=== PATIENT | female | born 1975 | race Native Hawaiian/Other Pacific Islander ===

== ENCOUNTER 2016-10-15 11:23 | Emergency (ER) | payer OTHER ==
--- NOTE | 2016-10-15 13:31 | ED CLINICAL REPORT ---
Clinical Report - Physicians/Mid Levels [facility] [address] [place] [address] 10/15/2016 11:28 Patient: AMANDA DANIEL Arrived- By private vehicle. Historian- patient. HISTORY OF PRESENT ILLNESS Chief Complaint: EARACHE. This started 3 days ago and is still present. Modifying factors- worsened by swallowing. Not relieved by anything. Location- right ear and left ear. The pain is described as moderate. The patient has had ear pain. No ear drainage, hearing loss, nasal discharge or congestion or sinus pressure. No ear trauma, jaw pain or facial pain. She has had a sore throat. Similar symptoms previously: None. Recent medical care: Not recently seen/assessed. PAST HISTORY See nurses notes. SOCIAL HISTORY Never smoker. No alcohol use or drug use. ADDITIONAL NOTES The nursing notes have been reviewed. PHYSICAL EXAM Vital Signs: 10/15/2016 13:34 BP: 132/76. HR: 87. RR: 14. O2 saturation: 99%. Temp: 98.1 F. Have been reviewed and appear to be correct. Appearance: Alert. No acute distress. Eyes: Eyes normal inspection. Throat: Mild generalized pharyngeal erythema. No right tonsillar exudate, right tonsillar swelling, left tonsillar exudate or left tonsillar swelling. Nose: Nose normal. Ear (right): There is erythema and bulging of the tympanic membrane and fluid behind the tympanic membrane. Right ear normal. Ear (left): There is erythema and bulging of the tympanic membrane and fluid behind the tympanic membrane. Left ear normal. Neck: Normal inspection. Mild right anterior neck and mild left anterior neck lymphadenopathy present. Neck supple. CVS: Normal heart rate and rhythm. Heart sounds normal. Respiratory: No respiratory distress. Breath sounds normal. Skin: Skin warm and dry. Normal skin color. No rash. Normal skin turgor. Neuro: Oriented X 3. PROGRESS AND PROCEDURES Course of Care: No evidence of sepsis or serious infection. Patient is stable. Patient/family counseled in person regarding the patient's condition and need for follow-up. Disposition: Discharged. Condition: stable. CLINICAL IMPRESSION Acute suppurative right otitis media; acute suppurative left otitis media. No perforation of right tympanic membrane. No perforation of left tympanic membrane. Acute viral pharyngitis INSTRUCTIONS Rest. Drink plenty of fluids. Warnings: GENERAL WARNINGS: Return or contact your physician immediately if your condition worsens or changes unexpectedly, if not improving as expected, or if other problems arise. Your Current Medications: CONTINUE TAKING THE FOLLOWING MEDICATIONS: Vitamin D Oral. Vitamins/Minerals Oral. Prescription Medications: Amoxicillin 500 mg tablets: take 1 orally every 8 hours for 10 days. No refills. Follow-up: Follow up with your doctor in about two days if not better. Understanding of the discharge instructions verbalized by patient. (Electronically signed by Jonna Mora A.R.N.P. 10/15/2016 14:45)
--- NOTE | 2016-10-15 13:31 | ED CLINICAL REPORT ---
Clinical Report - Physicians/Mid Levels [facility] [address] [place] [address] 10/15/2016 11:28 Patient: AMANDA DANIEL Arrived- By private vehicle. Historian- patient. HISTORY OF PRESENT ILLNESS Chief Complaint: EARACHE. This started 3 days ago and is still present. Modifying factors- worsened by swallowing. Not relieved by anything. Location- right ear and left ear. The pain is described as moderate. The patient has had ear pain. No ear drainage, hearing loss, nasal discharge or congestion or sinus pressure. No ear trauma, jaw pain or facial pain. She has had a sore throat. Similar symptoms previously: None. Recent medical care: Not recently seen/assessed. PAST HISTORY See nurses notes. SOCIAL HISTORY Never smoker. No alcohol use or drug use. ADDITIONAL NOTES The nursing notes have been reviewed. PHYSICAL EXAM Vital Signs: 10/15/2016 13:34 BP: 132/76. HR: 87. RR: 14. O2 saturation: 99%. Temp: 98.1 F. Have been reviewed and appear to be correct. Appearance: Alert. No acute distress. Eyes: Eyes normal inspection. Throat: Mild generalized pharyngeal erythema. No right tonsillar exudate, right tonsillar swelling, left tonsillar exudate or left tonsillar swelling. Nose: Nose normal. Ear (right): There is erythema and bulging of the tympanic membrane and fluid behind the tympanic membrane. Right ear normal. Ear (left): There is erythema and bulging of the tympanic membrane and fluid behind the tympanic membrane. Left ear normal. Neck: Normal inspection. Mild right anterior neck and mild left anterior neck lymphadenopathy present. Neck supple. CVS: Normal heart rate and rhythm. Heart sounds normal. Respiratory: No respiratory distress. Breath sounds normal. Skin: Skin warm and dry. Normal skin color. No rash. Normal skin turgor. Neuro: Oriented X 3. PROGRESS AND PROCEDURES Course of Care: No evidence of sepsis or serious infection. Patient is stable. Patient/family counseled in person regarding the patient's condition and need for follow-up. Disposition: Discharged. Condition: stable. CLINICAL IMPRESSION Acute suppurative right otitis media; acute suppurative left otitis media. No perforation of right tympanic membrane. No perforation of left tympanic membrane. Acute viral pharyngitis INSTRUCTIONS Rest. Drink plenty of fluids. Warnings: GENERAL WARNINGS: Return or contact your physician immediately if your condition worsens or changes unexpectedly, if not improving as expected, or if other problems arise. Your Current Medications: CONTINUE TAKING THE FOLLOWING MEDICATIONS: Vitamin D Oral. Vitamins/Minerals Oral. Prescription Medications: Amoxicillin 500 mg tablets: take 1 orally every 8 hours for 10 days. No refills. Follow-up: Follow up with your doctor in about two days if not better. Understanding of the discharge instructions verbalized by patient. (Electronically signed by Jonna Mora A.R.N.P. 10/15/2016 14:45)
--- NOTE | 2016-10-15 13:31 | ED NURSING NOTES ---
Clinical Report - Nurses [facility] [address] [place] [address] 10/15/2016 11:28 Patient: AMANDA DANIEL TRIAGE Triage time 11:45. Acuity: LEVEL 4. Chief Complaint: RIGHT EAR PAIN and LEFT EAR PAIN. Alert. No acute distress. MILA COMA SCORE: Mila Coma Scale: 15- eyes open spontaneously (4); best verbal response- oriented x 4 (5); best motor response- obeys commands (6). --11:50 Jaqueline Robertson R.N. 11:45 10/15/16. BP: 145/101. HR: 71. RR: 18. O2 saturation: 100%. Temp: 98.4 F (oral). Pain level now: 01/01. --11:50 Jaqueline Robertson R.N. Weight: 58.9 kg stated. Height/Length: 60 inches Per Patient. BMI: 25.4. --11:50 Jaqueline Robertson R.N. Medications Vitamin D Oral. Vitamins/Minerals Oral. --11:46 Jaqueline Robertson R.N. Allergies No Known Drug Allergy. --11:46 Jaqueline Robertson R.N. History Arrived by private vehicle. Historian: patient. Accompanied by family. Primary physician (Ashley). Onset. (about 3 days). PAST MEDICAL HX: Last normal menstrual period- September 2015. SOCIAL HX: Never smoker. No alcohol use or drug use. FALL RISK ASSESSMENT: Fall risk assessment completed. No fall risk identified. FUNCTIONAL ASSESSMENT: Functional assessment: no impairments noted. LEARNING NEEDS ASSESSMENT: The learning needs assessment revealed no barriers. --11:50 Jaqueline Robertson R.N. ADDITIONAL SURGERIES: . --11:48 Jaqueline Robertson R.N. Assessment GENERAL / NEURO / PSYCH: Alert. Oriented X 4. Appears in no acute distress. Patient appears calm and cooperative. RESPIRATORY: Respirations not labored. SKIN: Skin is warm and dry. --11:50 Jaqueline Robertson R.N. Interventions <<STRICKEN ENTRY-- ID band on patient. To treatment room. --11:50 Jaqueline Robertson R.N. --END STRIKE>> Correction --12:16 Jaqueline Robertson R.N. ID band on patient. To waiting room. --12:16 Jaqueline Robertson R.N. DISPOSITION / DISCHARGE 13:35 10/15/16. Condition at departure: improved. The goals identified in the patient's plan of care were met. No learning barriers present. Discharge instructions provided and reviewed with the patient. Reviewed warnings. Reviewed medication(s). Treatments reviewed. Patient verbalized understanding. Written instructions provided in Bangladeshi. The patient was discharged by the physician. She was discharged home and accompanied by family. She left the Emergency Department ambulatory and via private vehicle. Family member driving. FALL RISK ASSESSMENT: Fall risk assessment completed. No fall risk identified. --13:35 Clark Zee R.N. 13:34 10/15/16. BP: 132/76. HR: 87. RR: 14. O2 saturation: 99% on room air. Temp: 98.1 F. --13:35 Clark Zee R.N. 13:35 10/15/16. Departure time: 13:35 Oct 15 2016. --13:35 Clark Zee R.N. Locked/Released at 10/15/2016 13:37 by Clark Zee R.N.
--- NOTE | 2016-10-15 13:31 | ED NURSING NOTES ---
Clinical Report - Nurses [facility] [address] [place] [address] 10/15/2016 11:28 Patient: AMANDA DANIEL TRIAGE Triage time 11:45. Acuity: LEVEL 4. Chief Complaint: RIGHT EAR PAIN and LEFT EAR PAIN. Alert. No acute distress. MILA COMA SCORE: Mila Coma Scale: 15- eyes open spontaneously (4); best verbal response- oriented x 4 (5); best motor response- obeys commands (6). --11:50 Jaqueline Robertson R.N. 11:45 10/15/16. BP: 145/101. HR: 71. RR: 18. O2 saturation: 100%. Temp: 98.4 F (oral). Pain level now: 01/01. --11:50 Jaqueline Robertson R.N. Weight: 58.9 kg stated. Height/Length: 60 inches Per Patient. BMI: 25.4. --11:50 Jaqueline Robertson R.N. Medications Vitamin D Oral. Vitamins/Minerals Oral. --11:46 Jaqueline Robertson R.N. Allergies No Known Drug Allergy. --11:46 Jaqueline Robertson R.N. History Arrived by private vehicle. Historian: patient. Accompanied by family. Primary physician (Ashley). Onset. (about 3 days). PAST MEDICAL HX: Last normal menstrual period- September 2015. SOCIAL HX: Never smoker. No alcohol use or drug use. FALL RISK ASSESSMENT: Fall risk assessment completed. No fall risk identified. FUNCTIONAL ASSESSMENT: Functional assessment: no impairments noted. LEARNING NEEDS ASSESSMENT: The learning needs assessment revealed no barriers. --11:50 Jaqueline Robertson R.N. ADDITIONAL SURGERIES: . --11:48 Jaqueline Robertson R.N. Assessment GENERAL / NEURO / PSYCH: Alert. Oriented X 4. Appears in no acute distress. Patient appears calm and cooperative. RESPIRATORY: Respirations not labored. SKIN: Skin is warm and dry. --11:50 Jaqueline Robertson R.N. Interventions <<STRICKEN ENTRY-- ID band on patient. To treatment room. --11:50 Jaqueline Robertson R.N. --END STRIKE>> Correction --12:16 Jaqueline Robertson R.N. ID band on patient. To waiting room. --12:16 Jaqueline Robertson R.N. DISPOSITION / DISCHARGE 13:35 10/15/16. Condition at departure: improved. The goals identified in the patient's plan of care were met. No learning barriers present. Discharge instructions provided and reviewed with the patient. Reviewed warnings. Reviewed medication(s). Treatments reviewed. Patient verbalized understanding. Written instructions provided in [place]. The patient was discharged by the physician. She was discharged home and accompanied by family. She left the Emergency Department ambulatory and via private vehicle. Family member driving. FALL RISK ASSESSMENT: Fall risk assessment completed. No fall risk identified. --13:35 Clark Zee R.N. 13:34 10/15/16. BP: 132/76. HR: 87. RR: 14. O2 saturation: 99% on room air. Temp: 98.1 F. --13:35 Clark Zee R.N. 13:35 10/15/16. Departure time: 13:35 Oct 15 2016. --13:35 Clark Zee R.N. Locked/Released at 10/15/2016 13:37 by Clark Zee R.N.
--- NOTE | 2016-10-15 14:45 | ED MAR SUMMARY ---
..... Medication Administration Record [facility] [address] [place], [place] [id number] Patient: ALEJO DANIELElham Rachele Visit ID: [id number] 41y, F Weight: 58.9 kg Height/Length: 60 in BMI: 25.4 ALLERGIES: No Known Drug Allergy
--- NOTE | 2016-10-15 14:45 | ED DISCHARGE INSTRUCTIONS ---
Patient: AMANDA DANIEL General Instructions [facility] VisitID: [id number] [place] [address] 41y, F Registration Date/Time: 10/15/2016 Acute suppurative right otitis media; acute suppurative left otitis media. No perforation of right tympanic membrane. No perforation of left tympanic membrane. Acute viral pharyngitis INSTRUCTIONS Rest. Drink plenty of fluids. Warnings: GENERAL WARNINGS: Return or contact your physician immediately if your condition worsens or changes unexpectedly, if not improving as expected, or if other problems arise. Your Current Medications: CONTINUE TAKING THE FOLLOWING MEDICATIONS: Vitamin D Oral. Vitamins/Minerals Oral. Prescription Medications: Amoxicillin 500 mg tablets: take 1 orally every 8 hours for 10 days. No refills. Follow-up: Follow up with your doctor in about two days if not better. Understanding of the discharge instructions verbalized by patient. ADDITIONAL INFORMATION Middle Ear Infection (Adult) You have an infection of the middle ear (the space behind the eardrum). It can occur as a result of the common cold. This is because congestion can block the internal passage (eustachian tube) that drains fluid from the middle ear. When the middle ear fills with fluid, bacteria can grow there and cause an infection. Oral antibiotics are used to treat this illness, not ear drops. Symptoms usually start to improve within 1-2 days of treatment. Home Care: Finish all of the antibiotic medicine prescribed, even though you may feel better after the first few days. You may use acetaminophen (Tylenol) or ibuprofen (Motrin, Advil) to control pain, unless something else was prescribed. [NOTE: If you have chronic liver or kidney disease or have ever had a stomach ulcer or GI bleeding, talk with your doctor before using these medicines.] (Do not give aspirin to anyone under 18 years of age who is ill with a fever. It may cause severe liver damage.) Follow Up with your doctor or this facility in two weeks if all symptoms have not cleared, or if hearing does not return to normal within one month. Get Prompt Medical Attention if any of the following occur: Ear pain gets worse or does not improve after three days of treatment Unusual drowsiness or confusion Neck pain, stiff neck or headache Fluid or blood draining from the ear canal Fever of 100.4F (38C) or higher after 3 days of antibiotics, or as directed by your healthcare provider Convulsion (seizure) Viral Pharyngitis (Sore Throat) Your throat pain is due to an infection called "Viral Pharyngitis", commonly known as "Sore Throat". This is a contagious illness. It is spread through the air by coughing, kissing or by touching others after touching your mouth or nose. Symptoms include throat pain worse with swallowing, aching all over, headache and fever. Unlike strep throat, which is a bacterial infection, this illness does not require treatment with an antibiotic. Home Care: If your symptoms are severe, rest at home for the first 2-3 days. Children: Use acetaminophen (Tylenol) for fever, fussiness or discomfort. In infants over six months of age, you may use ibuprofen (Children's Motrin) instead of Tylenol. [NOTE: If your child has chronic liver or kidney disease or ever had a stomach ulcer or GI bleeding, talk with your connor doctor before using these medicines.] (Aspirin should never be used in anyone under 18 years of age who is ill with a fever. It may cause severe liver damage.) Adults: You may use acetaminophen (Tylenol) or ibuprofen (Motrin, Advil) to control pain or fever, unless another medicine was prescribed. [NOTE: If you have chronic liver or kidney disease or ever had a stomach ulcer or GI bleeding, talk with your doctor before using these medicines.] Throat lozenges or sprays (Chloraseptic and others) will reduce pain. Gargling with warm salt water will also reduce throat pain. Dissolve 1/2 teaspoon of salt in 1 glass of warm water. This is especially useful just before meals. Follow Up with your doctor or as directed by our staff if you are not improving over the next week. Get Prompt Medical Attention if any of the following occur: Fever over 100.5F (38.0C) oral, or over 101.5F (38.6C) rectal for more than three days New or worsening ear pain, sinus pain or headache Painful lumps in the back of your neck Unable to swallow liquids or open your mouth wide due to throat pain Trouble breathing or noisy breathing Muffled voice New rash You have been given the following additional information: Otitis Media, Abx Tx (Adult) Pharyngitis, Viral Rest. (Electronically signed by Jonna Mora A.R.N.P. 10/15/2016 14:45)
--- NOTE | 2016-10-15 14:45 | ED MED RECONCILIATION SUMMARY ---
Patient: AMANDA DANIEL Medication Reconciliation Report [facility] VisitID: [id number] [address] [place] [address] 41y, F Registration Date/Time: 10/15/2016 Weight: 58.9 kg Height/Length: 60 in. BMI: 25.4 ALLERGIES: No Known Drug Allergy The patient's Home Medications are listed below: CONTINUE TAKING THE FOLLOWING MEDICATIONS: Vitamin D Oral Vitamins/Minerals Oral The source(s) of the original Home Medication information: Not obtained. The following Medications were given to the patient in the Emergency Department: None. The following Medications were prescribed to the patient: Amoxicillin 500 mg tablets: take 1 orally every 8 hours for 10 days. No refills. -- Jonna Mora A.R.NClaireP.
--- NOTE | 2016-10-15 14:45 | ED MED RECONCILIATION SUMMARY ---
Patient: AMANDA DANIEL Medication Reconciliation Report [facility] VisitID: [id number] [address] [place] [address] 41y, F Registration Date/Time: 10/15/2016 Weight: 58.9 kg Height/Length: 60 in. BMI: 25.4 ALLERGIES: No Known Drug Allergy The patient's Home Medications are listed below: CONTINUE TAKING THE FOLLOWING MEDICATIONS: Vitamin D Oral Vitamins/Minerals Oral The source(s) of the original Home Medication information: Not obtained. The following Medications were given to the patient in the Emergency Department: None. The following Medications were prescribed to the patient: Amoxicillin 500 mg tablets: take 1 orally every 8 hours for 10 days. No refills. -- Jonna Mora A.R.NClaireP.
--- NOTE | 2016-10-15 14:45 | ED MAR SUMMARY ---
..... Medication Administration Record [facility] [address] [place], [place] [id number] Patient: ALEJO DANIELElham Rachele Visit ID: [id number] 41y, F Weight: 58.9 kg Height/Length: 60 in BMI: 25.4 ALLERGIES: No Known Drug Allergy
== END 2016-10-15 13:35 | disposition home or self-care (01) ==
LOC: ED SRH 11:23
DX: H66.003 Acute suppurative otitis media without spontaneous rupture of ear drum, bilateral (principal); J02.9 Acute pharyngitis, unspecified